=== PATIENT | male | born 1955 | race Caucasian/White ===

== ENCOUNTER 2016-12-23 12:28 | Inpatient (IN) | payer MEDICARE ==
[~2016-12-23] VITALS: Ht 167.6 cm; Wt 59.0 kg
[2016-12-23] VITALS (7 sets, daily range): BP systolic 102–130; BP diastolic 63–81
--- NOTE | ~2016-12-23 | CON ---
[place], [place] RE[facility] OF [id number] #: [id number] ROOM: 412 DOCTOR: GORDO DAIGLE MD BIRTHDATE: [birth year] DOS: 12/24/2016 PULMONARY CONSULTATION, EVALUATION AND MANAGEMENT REASON FOR CONSULTATION: Assess the patient abnormal chest x-ray and other ongoing respiratory symptom. HISTORY OF PRESENT ILLNESS: This is a 61-year-old white male who has been known to me. The patient was seen in the office on 12/13/2016 because of progressing respiratory symptoms of coughing with some sputum expectoration and shortness of breath. The symptoms have been noted progressively worsening. The patient was seen in the office for that. She has been using excessive use of short-acting bronchodilators and other respiratory medication without any relief. The patient had a chest x-ray done for assessment of current severe symptom. Chest x-ray shows possibility of atelectasis of the left lingula with a mass-like consolidation and infiltration. The patient was advised about hospitalization, but he refused to be hospitalized. He does understand the risks and benefits. To first use antibiotics as an outpatient and corticosteroids and may consider hospitalization at that time. The patient was also noted with chronic hypoxic respiratory failure using the oxygen supplementation as well. The patient denies any symptoms of chest pain at this time. He decided to come to the hospital and assessed in the Emergency Room on 12/23/2016 and being admitted to the hospital for further treatments. The patient denies any symptoms of chest trauma. REVIEW OF SYSTEMS: CONSTITUTIONAL: He does complain of symptoms of fatigue and tiredness. Denies symptoms of fever or chills. EYES: Denies any burning, redness, or tenderness. EARS, NOSE, THROAT SYMPTOMS: No sore throat, hoarseness, or otalgia. CARDIOVASCULAR: Denies anginal pain, edema or pain of the lower extremities. GASTROINTESTINAL: Denies dysphagia, nausea, vomiting, diarrhea, abdominal pain, hematemesis, melena, or hematochezia. The patient has been noted with weight loss gradually from the past. He weight has decreased from 02/22/2016 and currently noted at 127 pounds. GENITOURINARY: Denies dysuria, suprapubic pain, or hematuria. SKIN: Denies lesions or rashes. MUSCULOSKELETAL: Denies acute joint pain, redness, or tenderness. Remaining systems were reviewed with the patient, they were noted all negative. PAST MEDICAL HISTORY: 1. The patient was known with history of chronic hypoxic respiratory failure, use of oxygen supplementation 3-4 liters nasal cannula. 2. History of chronic obstructive pulmonary disease. 3. History of known noncompliance intermittently to medications and physician instruction. 4. History of allergic rhinitis. PAST SURGICAL HISTORY: [place], [place] REPORT OF CONSULTATION NAME: JOANNE RYENA UNIT #: [id number] ROOM: [facility] DOCTOR: MARYSE CARDENAS MD,GORDO BIRTHDATE: [birth year] 1. Appendectomy. 2. Peptic ulcer surgery and pyloroplasty. SOCIAL HISTORY: The patient is currently , has 2 children. Denies history of alcohol use or illicit drug use. Tobacco use noted since age of [age] years old, pack of cigarettes per day for the patient which has been noted chronic. There was no history of occupation related pulmonary exposure. FAMILY HISTORY: Father at the age of 8080 years old from complication of myocardial infarction. Mother at the age of 7070 years old, complication related to diabetes mellitus. HOME MEDICATIONS: 1. The patient known to use of DuoNeb q.4h. p.r.n. for shortness of breath. 2. Claritin 10 mg p.o. daily. 3. Recent use of Levaquin 500 mg daily since 12/13, already completed. 4. Tapering dose of prednisone. 5. Ventolin HFA inhaler p.r.n. use. 6. Symbicort 160/4.5 two puffs b.i.d. DRUG ALLERGIES: The patient was noted as no known drug allergies. PHYSICAL EXAMINATION: GENERAL: A 61-year-old male who has been currently noted to be awake and alert without any acute distress. Height was noted at 5 feet 6 inches, weight of 130 pounds, BMI 20.9. VITAL SIGNS: The patient was reported as normal temperature, respiratory rate 18-20, heart rate of 101-84, blood pressure 120/76 to 102/63. Pulse oxygen saturation of the patient was noted on 4 liters nasal cannula at 94%; on 3 liters nasal cannula previously, 89% saturation. HEENT: Examination shows head was atraumatic. Eyes nonicterus. NECK: Supple. CARDIOVASCULAR: S1, S2 audible. LUNGS: The patient noted with moderate generalized reduced breath sounds noted in the lungs bilaterally with questionable wheezing. No crackles. Breaths are noted decreased more on the left than the right side. ABDOMEN: Flat, soft, nontender, bowel sounds present. EXTREMITIES: Show no edema, clubbing, or cyanosis. CENTRAL NERVOUS SYSTEM: Cranial nerves 2-12 intact. No focal deficits. MUSCULOSKELETAL: No deformities. SKIN: No lesions or rashes. LABORATORY DATA: The arterial blood gas that was done yesterday 4 liters, pH of 7.40, pCO2 of 46, pO2 94.5. Lactic acid yesterday was 1.8, was normal. BMP of the patient yesterday on admission, BUN 36, creatinine 1.54, glucose 132, sodium 135. CBC of the patient yesterday, WBC count 14.1, hemoglobin 13.6 and hematocrit 41.1, platelet count of 71,000. The PT, PTT for the patient noted this morning is normal. CMP of the patient this morning, BUN 35, creatinine 1.32. Sodium 135. The CBC of the patient that was repeated this morning, WBC count 13.5, hemoglobin 12.5, hematocrit 38.1 and platelet count of 65,000 and [place], [place] REPORT OF CONSULTATION NAME: JOANNE REYNA UNIT #: [id number] ROOM: [facility] DO[facility] [birth year] 91% segmented neutrophils. The chest x-ray of the patient that was done today was reviewed and compared and showed significant marked worsening of the current area of consolidation, a mass-like lesion noted in the left lingula and the left lower lobe area. Severe COPD changes noted for large pulmonary arteries as well. There were no obvious gross pleural fluid visible. IMPRESSION: 1. The patient has been currently admitted to the hospital and noted with [id number] hypoxic respiratory failure and result of current progression of the disease in the left lung. The patient with possibility of pneumonia and malignancy to be considered as well. 2. History of chronic heavy nicotine abuse as well. 3. Refusal of past treatment by the patient when advised. 4. Thrombocytopenia, etiology is unclear; noted gradually and progressive. 5. Acute kidney injury secondary to intravascular volume depletion, currently improved with IV hydration. PLAN OF MANAGEMENT: CT scan of the chest for the patient has been ordered with intravenous contrast for more accurate assessment of the mediastinum as well as the current abnormality. Based on that, the patient's further additional assessment will be advised. The patient would be recommended most likely transfer to another facility since I will not be personally available to further assess and manage this patient for recurrent problems. In the meantime, continue the patient on current antibiotics. Order the sputum for Gram stain and culture. Continue antibiotics. Usual care, other supportive therapy, plan of management and care plan. Additional changes in the treatment will be done based on the progression of the illness. DVT prophylaxis will be done with SCDs because of the current thrombocytopenia. Thanks for allowing me to participate in the care of this patient. GORDO SERRA MD CM:CONSTR:REPORT OF CONSULTATION 1106 12/25/16 0208 interface
[~2016-12-23 12:28] MED LIST: ACETAMINOPHEN-H1 TA2 PO; ADVAIR 250/501 EA INH; ALDACTONE25 M1 PO; ALDACTONE25 MG PO; ALEVE220 MG PO; ATROVENT 2.5 M2.5 ML IH; AZO-SULFISOXAZO1 TA1 PO; BACTRIM DS 8001 TAB PO; CLARITIN10 MG PO; COMBIVENT1 ARO IH; DIAMOX250 MG PO; DUONEB 3ML 3 MG/3 ML INH; FUROSEMIDE40 MG PO; LEVAQUIN750 M1 PO; LEVAQUIN750 MG PO; MUCINEX600 MG PO; OXYGEN NAS; PREDNISONE50 MG PO; PROAIR HFA0.09 MG/AC PO; PROVENTIL0.09 MG/AC IH; SYMBICORT1 AE1 PO
--- NOTE | 2016-12-23 12:50 | NUR ---
DONA OBTAINED BY MILI
[2016-12-23 13:01] LABS: ABG HCO3 29.1 mmol/l (22-26); ARTERIAL BLOOD GAS PCO2 46.7 mmHg (35-45); ARTERIAL BLOOD GAS PH 7.409 (7.35-7.45); ARTERIAL BLOOD GAS PO2 94.5 mmHg (80-90)
[2016-12-23 13:10] LABS: HEMATOCRIT 41.1 % (42.0-52.0); HEMOGLOBIN 13.6 g/dl (14.0-18.0); MEAN CELL VOLUME 93.4 fl (80.0-94.0); MEAN CORPUSCULAR HGB 30.9 pg (27.0-31.0); MEAN CORPUSCULAR HGB CONC 33.1 g/dl (33.0-37.0); MEAN PLATELET VOLUME 11.6 fl (9.6-12.3); NUCLEATED RED BLOOD CELL 0.1 10*3/uL (0.0-0.0); NUCLEATED RED BLOOD CELL 0.5 % (0.0-0.0); PLATELET COUNT AUTOMATED 71 10*3/uL (130-400); RED CELL DISTRI WIDTH 13.7 % (0-14.5); WHITE BLOOD COUNT 14.1 10*3/uL (4.8-10.8)
[2016-12-23 13:23] LABS: CREATININE 1.54 mg/dL (0.70-1.30); POTASSIUM 4.6 mmol/L (3.5-5.1)
[2016-12-23 13:35] LABS: BASOPHILS 2 % (0-1); TOTAL CELLS COUNTED 100 #CELLS
--- NOTE | 2016-12-23 13:35 | NUR ---
SALINE AND LEVAQUIN INFUSING AT TIME OF ADMISSION.
[2016-12-23 13:36] LABS: PLATELET SUFFICIENCY LOW (NORMAL)
--- NOTE | 2016-12-23 14:42 | NUR ---
A 61, admitted to , under the services of ARYA Zheng DO with a diagnosis of FAILURE OF OUTPATIENT TREATMENT, RESPIRATORY FAILURE. Chief complaint is SHORTNESS OF BREATH. Patient arrived via bed from ER. Monitor applied. Initial assessment completed. Vital signs taken and recorded. ARYA ZHEGN DO notified of admission to the unit. Orders received. See assessment for past medical history, medications and allergies. Patient and/or family oriented to unit. [facility]. Clothing/patient valuable form completed. CHARMAINE SALAS
--- NOTE | 2016-12-23 16:00 | NUR ---
DR SERRA NOTIFIED ON CONSULT
[2016-12-24] VITALS: BP 106/62
--- NOTE | 2016-12-24 02:06 | NUR ---
Patient resting quietly with no c/o discomfort. Respirations easy and regular. Vital signs stable. No overt distress. Call light within reach.
[2016-12-24 06:22] LABS: HEMATOCRIT 38.1 % (42.0-52.0); HEMOGLOBIN 12.5 g/dl (14.0-18.0); MEAN CELL VOLUME 94.3 fl (80.0-94.0); MEAN CORPUSCULAR HGB 30.9 pg (27.0-31.0); MEAN CORPUSCULAR HGB CONC 32.8 g/dl (33.0-37.0); NUCLEATED RED BLOOD CELL 0.1 10*3/uL (0.0-0.0); NUCLEATED RED BLOOD CELL 0.4 % (0.0-0.0); PLATELET COUNT AUTOMATED 65 10*3/uL (130-400); RED BLOOD COUNT 4.04 10*6/uL (4.50-5.90); RED CELL DISTRI WIDTH 13.9 % (0-14.5); WHITE BLOOD COUNT 13.5 10*3/uL (4.8-10.8)
[2016-12-24 06:25] LABS: ACT PARTIAL THROMBO TIME 21.8 SECONDS (20.8-31.5)
[2016-12-24 06:31] LABS: ALBUMIN 2.9 gm/dl (3.1-4.5); ALKALINE PHOSPHATASE 42 U/L (45-117); BUN 35 mg/dl (7-24); CHLORIDE 101 mmol/L (98-107); CHOLESTEROL 172 mg/dL (<200); CREATININE 1.32 mg/dL (0.70-1.30); HDL CHOLESTEROL 68 mg/dl (40-60); LDL CHOLESTEROL 90 mg/dL (9-159); MAGNESIUM 1.8 mg/dL (1.5-2.1); POTASSIUM 4.4 mmol/L (3.5-5.1); SGOT/AST 210 IU/L (3-35); SGPT/ALT 30 U/L (12-78); SODIUM 138 mmol/L (136-145); TOTAL PROTEIN 6.2 gm/dL (6.4-8.2); TRIGLYCERIDES 72 mg/dl (<150); VLDL CHOLESTEROL 14 mg/dL (6-40)
[2016-12-24 06:35] LABS: PHOSPHOROUS 5.5 mg/dL (2.5-4.9); THYROID STIM HORMONE (HS) 0.436 uIU/ml (0.358-4.75)
--- NOTE | 2016-12-24 07:30 | NUR ---
ASSUMED CARE OF PT AT THIS TIME, PT SITTING UP RIGHT IN BED DOINF BREATHING TX
[2016-12-24 08:00] VITALS: BP 120/76
[2016-12-24 08:17] LABS: ACANTHOCYTES FEW; PLATELET SUFFICIENCY LOW (NORMAL); SCHISTOCYTES FEW; TOTAL CELLS COUNTED 100 #CELLS
[2016-12-24 08:28] LABS: VITAMIN D, 25-HYDROXY 12.7 ng/mL (30-100)
--- NOTE | 2016-12-24 09:57 | NUR ---
Building Repair Maintenance Supervisor in to talk to patient. Patient states lives at home with daughter and family. There are no steps in the home. Physician: treva delgado Pharmacy: [facility] health services: none Patient's level of ADLs: INDEPENDENT Patient has working utilities: all working DME: home oxygen, portable tanks and nebulizer from [facility] Follow-up physician's appointment after d/c: will be made by hospitalist nurse director upon discharge Does patient want to access PORTAL?: no Discharge plan discussed with patient, patient states he lives in the basement of his daughters home, he is independent in adls and ambulation, no cane or walker, he has home oxygen, patient states he will be going back home when able, discussed with him [facility] and he refused any services at this time. CLEMENT ARMAS
--- NOTE | 2016-12-24 10:24 | NUR ---
LOVENOX HELD R/T DECREASED PLARELETS OF 63
[2016-12-24 12:00] VITALS: BP 108/69
--- NOTE | 2016-12-24 14:50 | NUR ---
NURSE TO NURSE CALLED TO [facility]ELDS FOR UPDATE ON PT
[2016-12-24] MEDS ORDERED: CEFTRIAXONE1 GM IV (15:05)
[2016-12-24] MEDS ORDERED: VENTOLIN 02.5 MG/3 M NEB (15:05)
[2016-12-24] MEDS ORDERED: Solu-Medrol IV (15:05)
[2016-12-24] MEDS ORDERED: MORPHINE SU2 MG/1 M2 IV (15:05)
[2016-12-24] MEDS ORDERED: HEPARIN SO5000 UNIT/ SC (15:05)
[2016-12-24] MEDS ORDERED: MUCINEX ER600 MG PO (15:05)
[2016-12-24] MEDS ORDERED: AZITHROMYCIN500 M1 IV (15:06)
[2016-12-24] MEDS ORDERED: VITAMIN D31000 UNIT PO (15:33)
[2016-12-24] MEDS ORDERED: NATURE'S BLEND F1 MG PO (15:33)
--- NOTE | 2016-12-24 16:01 | NUR ---
PATIENT BEING TRANSFERRED BY [facility] TO [facility]. REPORT HAS BEEN GIVEN TO RECEIVING NURSE. HEPLOCK REMAINS INTACT, PATENT. O2 REMAINS AT 2L CONTINUOUSLY. BILLIARD PLAYER REMOVED. DAUGHTER NOTIFIED OF TRANSFER
== END 2016-12-24 16:01 | disposition short-term general hospital (02) | DRG 871 ==
LOC: ED 12:28 → 4E 13:19 → EDHOLD 13:19 → 4E 13:21
PROVIDERS: Emergency Medicine; Student in an Organized Health Care Education/Training Program; ADMIT Emergency Medicine
DX: A41.9 Sepsis, unspecified organism (principal); N17.0 Acute kidney failure with tubular necrosis; J96.21 Acute and chronic respiratory failure with hypoxia; E43 Unspecified severe protein-calorie malnutrition; J18.9 Pneumonia, unspecified organism; D69.6 Thrombocytopenia, unspecified; E87.1 Hypo-osmolality and hyponatremia; K74.60 Unspecified cirrhosis of liver; J96.22 Acute and chronic respiratory failure with hypercapnia; J44.0 Chronic obstructive pulmonary disease with (acute) lower respiratory infection; J44.1 Chronic obstructive pulmonary disease with (acute) exacerbation; Z68.1 Body mass index [BMI] 19.9 or less, adult; R65.20 Severe sepsis without septic shock; R91.8 Other nonspecific abnormal finding of lung field; R91.1 Solitary pulmonary nodule; R73.9 Hyperglycemia, unspecified; E83.52 Hypercalcemia; D64.9 Anemia, unspecified; Z90.49 Acquired absence of other specified parts of digestive tract; E53.8 Deficiency of other specified B group vitamins; Z79.899 Other long term (current) drug therapy; Z87.891 Personal history of nicotine dependence; Z82.49 Family history of ischemic heart disease and other diseases of the circulatory system; Z83.3 Family history of diabetes mellitus